=== PATIENT | female | born 1990 | race Caucasian/White ===

== ENCOUNTER 2017-12-10 10:56 | Day surgery (SDC) | payer OTHER, SELFPAY ==
[2017-12-08 08:28] VITALS: BMI 34.1
--- NOTE | 2017-12-10 | PATH_ITS ---
[facility] Accession Number: [id number] . 01 Material submitted: . PART A: ENDOCERVICAL CURETTINGS PART B: ENDOMETRIAL CURETTINGS . 02 Diagnosis: . A. Endocervical Curettings: Fragments of endocervical epithelium, negative for atypia. Fragments of inactive endometrium consistent with origin in lower uterine segment, negative for atypia. . B. Endometrial Curettings: Secretory endometrium with disordered maturation and changes of glandular and stromal breakdown, negative for atypia. [facility]/12/13/2017 . 02 Electronically signed: . Jesu Turk MD, Pathologist NPI- [id number] . 01 Gross description: . Received are two formalin-filled containers, both labeled with the patient's name: . A. In a container labeled endocervical curettings, the specimen consists of approximately a 0.5 cc aggregate of mucoid material and blood, which is filtered, wrapped, and entirely submitted in cassette A. B. In a container labeled endometrial curettings, the specimen consists of approximately a 1.25 cc aggregate of tissue, mucoid material, and blood, which is filtered, wrapped, and entirely submitted in cassette B. ([id number]) /FRR . 02 Pathologist provided ICD-10: N92.6 . 02 CPT . 132156, [id number] Performed at: 01 [facility] [address], [place], [place] [id number] MD Geronimo Pfeiffer MD Phone: [phone] Performed at: 02 [facility] [address] [place], [place] [id number] MD Adolfo López MD Phone: [phone]
[2017-12-10] MEDS: LACTATED RINGERS 1,000 ML 42 ML IV (11:20)
[2017-12-10 11:33] VITALS: BP 111/70; PULSE 84; RESP 16; TEMP 36.3; O2SAT 99; BMI 33.3
[2017-12-10] MEDS: ACETAMINOPHEN 325 MG TABLET 650 MG PO (12:48)
[2017-12-10] MEDS: CELECOXIB 200 MG CAPSULE PO (12:49)
[2017-12-10] MEDS: GABAPENTIN 600 MG TABLET PO (12:49)
[2017-12-10] MEDS: BUPIVACAINE 0.5% W/ EPI (PF) 30 ML VIAL INJ (14:38)
[2017-12-10] MEDS: LIDOCAINE 1% 30 ML INJ INJ (14:46)
--- NOTE | 2017-12-10 15:01 | PM.GYNOP.1 ---
Procedure: Procedures Operation Date: 12/10/17 12:15 Actual Procedures Side Surgeon p Laparoscopy, Diagnostic, WILDLIFE CONTROL OPERATOR Not Applicable MD rajwinder Adrian Dilation and Curettage w/Colposcopy Not Applicable MD rajwinder Adrian Intrauterine Device Insertion Not Applicable Luis Cantor MD Indications: 1. Heavy painful menses 2. Atypical glandular hyperplasia on a Pap smear Surgeon: Luis Cantor Anesthesia Type: General and Peripheral nerve block Operative Notes Findings: Examination under anesthesia revealed a normal sized anteverted uterus and normal adnexae Operative findings included normal uterus, tubes, ovaries, ovarian fossae, anterior and posterior cul-de-sacs, liver edge and gallbladder. There were adhesions of the cecum to the anterior abdominal wall in the right lower quadrant. Closure Type: primary (Four 0 Monocryl, Dermabond) Specimen(s): endometrial curettings and other (Endocervical curettings) Estimated blood loss (mL): 10 Blood products transfused: none Procedure in detail: The patient was taken to the operating room and placed supine on the operating table and given general oral endotracheal anesthesia. She was then placed in low lithotomy stirrups and prepped and draped in the usual sterile fashion. The time-out was performed. A speculum was placed in her vagina and the cervix was grasped with the Hulka tenaculum. Attention was returned to the abdomen where the umbilicus was infiltrated with 8 cc of 0.5% Marcaine and a midline stab incision was made in the umbilicus. A Veress needle was inserted into the abdominal cavity and its position verified by hanging drop technique. The abdomen was insufflated to 2 L of carbon dioxide. The Veress needle was removed and replaced by the laparoscopic trocar and sleeve with the laparoscope in place allowing direct visualization of entry into the abdomen. A midline 5 mm suprapubic port was placed after infiltration of the area with 5 cc of 0.5% Marcaine and a stab incision. There was no observable pathology indicative of endometriosis. The abdomen was desufflated to the extent possible and instruments were withdrawn under direct visualization. The incisions were closed with 4 O Monocryl and covered with Dermabond. Attention was returned to the vagina where a speculum was placed. The Hulka tenaculum was removed and the cervix was grasped with a single-tooth tenaculum. A paracervical block with 20 cc of 1% lidocaine was given. Colposcopy was performed using ascetic acid and there were no aceto-white lesions noted. Endocervical curettings were obtained on a Telfa pad and submitted for pathologic examination. The cervix was dilated to a 20. 3 Cymro and endometrial curettings were obtained and a 2nd Telfa pad. Adequacy of curettage was checked with parental stone forceps. When curettage was judged adequate, a Mirena IUD was placed and the string was shortened to 3 cm. Instruments were withdrawn from the vagina and the patient was awakened and taken to the recovery room in stable condition. Complications: none Post-operative Condition: stable Disposition: PACU Plan for aftercare: home
[2017-12-10 15:06] VITALS: BP 102/65; PULSE 85; RESP 12; TEMP 36.8; O2SAT 96
[2017-12-10 15:11] VITALS: BP 113/70; PULSE 80; RESP 14; O2SAT 96
[2017-12-10 15:16] VITALS: BP 103/67; PULSE 91; RESP 15; O2SAT 100
[2017-12-10 15:29] VITALS: BP 110/70; PULSE 86; RESP 16; O2SAT 98
[2017-12-10 15:40] VITALS: BP 123/84; PULSE 84; RESP 17; TEMP 36.7; O2SAT 99
== END 2017-12-10 15:54 ==
LOC: OR 10:58
PROVIDERS: Visit Provider Obstetrics & Gynecology
PROC: (CPT 49320; principal; 2017-12-10 12:15)
PROC: (CPT 58120; 2017-12-10 12:15)
PROC: (CPT 49320; 2017-12-10 12:15)
DX: K66.0 Peritoneal adhesions (postprocedural) (postinfection) (principal); N94.4 Primary dysmenorrhea; R10.2 Pelvic and perineal pain; R87.619 Unspecified abnormal cytological findings in specimens from cervix uteri; Z30.430 Encounter for insertion of intrauterine contraceptive device; F17.210 Nicotine dependence, cigarettes, uncomplicated
CPT/HCPCS: 49320; 57456; 58300; 88305; J1100; J1885; J2405; J2704; J3010

== ENCOUNTER → 2020-05-09 16:11 | Outpatient (CLI) | payer OTHER, SELFPAY ==
[2020-05-09 17:53] LABS: Lithium < 0.2 mmol/L (0.6-1.2)
[2020-05-09 17:54] LABS: Alanine Aminotransferase 21 IU/L (<35); Albumin 4.5 g/dL (3.5-5.0); Albumin Globulin Ratio 1.4 (1.0-2.8); Alkaline Phosphatase 83 U/L (38-126); Aspartate Aminotransferase 23 IU/L (14-36); BUN Creatinine Ratio 12.9 (6-22); Bilirubin Total 0.4 mg/dL (0.2-1.3); Blood Urea Nitrogen 12 mg/dL (7-17); Calcium 9.4 mg/dL (8.4-10.2); Carbon Dioxide 26 mmol/L (22-32); Chloride 104 mmol/L (98-107); Estimated Glomerular Filt Rate > 60.0 mL/min (>60); Globulin 3.2 g/dL (1.7-4.1); Glucose 96 mg/dL (70-100); HEMOLYSIS < 15 (0-50); Potassium 3.9 mmol/L (3.4-5.1); Sodium 138 mmol/L (137-145); Total Protein 7.7 g/dL (6.3-8.2)
[2020-05-09 18:14] LABS: Free T4, Direct Thyroxine 1.11 ng/dL (0.78-2.19)
== END ==
PROVIDERS: Referring Provider Psychiatry & Neurology Psychiatry; Visit Provider Psychiatry & Neurology Psychiatry
DX: F31.81 Bipolar II disorder (principal)
CPT/HCPCS: 36415; 80053; 80178; 84439; 84443; 99214